=== PATIENT | male | born 1950 ===

== ENCOUNTER 2018-03-03 05:49 | Day surgery (SDC) | payer MEDICARE ==
[~2018-03-03] VITALS: Ht 180.3 cm; Wt 107.7 kg
[2018-03-03 06:44] VITALS: BP 174/70; PULSE 59; TEMP 98
[2018-03-03] MEDS ORDERED: COZAAR100 MG PO (06:59)
[2018-03-03] MEDS ORDERED: NORVASC 10MG10 MG PO (06:59)
[2018-03-03] MEDS ORDERED: UROXATRAL10 M1 PO (07:00)
[2018-03-03] MEDS ORDERED: BETIMOL 10 ML10 ML OU (07:01)
[2018-03-03 09:50] VITALS: BP 136/64; PULSE 55
--- NOTE | 2018-03-03 09:50 | NUR ---
Patient returns to room 6 per cart and is awake and alert. Temp 97.8 and room air sats 95%. IV fluids infusing and siderails up x2. Call light in reach. Spouse in room. Water at side.
[2018-03-03 10:05] VITALS: BP 131/68; PULSE 54
--- NOTE | 2018-03-03 10:05 | NUR ---
Room air sats 97%. Taking few sips of water. Patient has been asking spouse what the doctor found. Spouse informed the patient that Dr. Cordero did not find anything significant.
[2018-03-03 10:16] VITALS: TEMP 97.7
[2018-03-03 10:20] VITALS: BP 135/76; PULSE 54
--- NOTE | 2018-03-03 10:20 | NUR ---
Patient refuses to eat or urinate. States he wants to go home. Patient angry that he did not get any answers from the surgery. IV discontinued and given dismissal instructions. Patient apologizes for being an unhappy patient and being uncooperative but states "I just wanted answers and now I want to go home."
--- NOTE | 2018-03-03 10:30 | NUR ---
Patient walked to the front door accompanied by RN and escorted to the car.
== END 2018-03-03 10:30 | disposition home or self-care (01) ==
LOC: SDCO 05:49
DX: N40.1 Benign prostatic hyperplasia with lower urinary tract symptoms (principal); R35.0 Frequency of micturition; R35.1 Nocturia; R39.15 Urgency of urination; I10 Essential (primary) hypertension; H40.9 Unspecified glaucoma; Z80.0 Family history of malignant neoplasm of digestive organs; Z82.49 Family history of ischemic heart disease and other diseases of the circulatory system; Z87.891 Personal history of nicotine dependence
CPT/HCPCS: J0690; J2704; J3010; J7120

== ENCOUNTER → 2018-04-22 | Outpatient (CLI) | payer MEDICARE ==
[~2018-04-22] MED LIST: BETIMOL 10 ML10 ML OU; COZAAR100 MG PO; NORVASC 10MG10 MG PO; UROXATRAL10 M1 PO
== END ==
LOC: COL.RAD 07:53
DX: Z00.00 Encounter for general adult medical examination without abnormal findings (principal); Z13.6 Encounter for screening for cardiovascular disorders; Z87.891 Personal history of nicotine dependence